=== PATIENT | female | born 2005 | race African-American/Black ===

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

== ENCOUNTER 2024-12-18 19:03 | Emergency (ER) | payer OTHER ==
[~2024-12-18] VITALS: Ht 172.7 cm; Wt 77.9 kg
[~2024-12-18 19:03] MED LIST changes: -ALIG4CAP PO; +ALIG4CAP3 PO; -NS 1,000 ML IV ONE
[2024-12-18] MEDS: IBUPROFEN 600MG TAB PO ONE (21:41)
[2024-12-18] MEDS: ONDANSETRON 4MG ORAL DISINTEGRATING TAB PO ONE (21:41)
[2024-12-18] MEDS: ACETAMINOPHEN 325 MG TAB PO ONE (21:42)
[2024-12-18] MEDS ORDERED: ONDA-282 PO (22:37)
[2024-12-18 22:50] VITALS: BP 116/55; TEMP 98.2; O2SAT 98
== END 2024-12-18 22:52 | disposition home or self-care (01) ==
LOC: M ED 19:03
DX: S09.90XA Unspecified injury of head, initial encounter (principal); M54.2 Cervicalgia; W01.198A Fall on same level from slipping, tripping and stumbling with subsequent striking against other object, initial encounter; F41.9 Anxiety disorder, unspecified; Z91.018 Allergy to other foods; Y92.9 Unspecified place or not applicable; Y93.89 Activity, other specified; Y99.1 Military activity; Z79.899 Other long term (current) drug therapy; Z79.83 Long term (current) use of bisphosphonates

== ENCOUNTER 2025-02-05 23:03 | Emergency (ER) | payer OTHER ==
[~2025-02-05] VITALS: Ht 172.7 cm; Wt 82.1 kg
[~2025-02-05 23:03] MED LIST changes: +ONDA-282 PO
[2025-02-06] MEDS: KETOROLAC 30 MG/ML 1ML VIAL IV ONE (01:17)
[2025-02-06 01:27] LABS: BASO % 0.4 % (0.0-1.0); EOS # 0.1 10^3/uL (0.0-0.5); EOS % 1.5 % (0.0-3.0); HEMOGLOBIN 11.8 g/dl (12.0-15.5); LYMPH # 2.8 10^3/uL (1.5-5.0); MEAN CORPUSCULAR HEMOGLOBIN 24.6 pg (27.0-33.0); MEAN CORPUSCULAR HGB CONC 32.8 g/dl (32.0-36.5); MEAN CORPUSCULAR VOLUME 75.2 fl (80.0-96.0); MONO # 0.6 10^3/uL (0.0-0.8); MONO % 8.3 % (2.0-8.0); NEUTROPHILS # 3.7 10^3/uL (1.5-8.5); NEUTROPHILS % 51.7 % (36.0-66.0); PLATELET COUNT, AUTOMATED 303 10^3/uL (150-450); RED BLOOD COUNT 4.79 10^6/uL (4.00-5.40); WHITE BLOOD COUNT 7.2 10^3/uL (4.0-10.0)
[2025-02-06 01:37] LABS: ERYTHROCYTE SEDIMENTATION RATE 20 mm/hr (0-20)
[2025-02-06 01:40] LABS: INR 0.94; PARTIAL THROMBOPLASTIN TIME 28.1 SECONDS (24.8-34.2); PROTHROMBIN TIME 12.8 SECONDS (12.5-14.5)
[2025-02-06 01:54] LABS: C REACTIVE PROTEIN QUANTITATIV 0.59 MG/DL (<1.0)
[2025-02-06 01:55] LABS: ALBUMIN 3.3 G/DL (3.2-5.2); ALKALINE PHOSPHATASE 43 U/L (35-104); ALT/SGPT 24 U/L (7.0-40); AST/SGOT 13 U/L (<34); BILIRUBIN,DIRECT < 0.1 MG/DL (<0.4); BILIRUBIN,TOTAL 0.2 MG/DL (0.3-1.2); BLOOD UREA NITROGEN 15 MG/DL (9-23); CALCIUM LEVEL 9.3 MG/DL (8.5-10.1); CARBON DIOXIDE LEVEL 25 MMOL/L (20-31); CHLORIDE LEVEL 108 MMOL/L (98-107); CREATININE FOR GFR 0.64 MG/DL (0.55-1.30); GLUCOSE, FASTING 84 MG/DL (60-100); POTASSIUM SERUM 4.3 MMOL/L (3.5-5.1); SODIUM LEVEL 142 MMOL/L (136-145); TOTAL PROTEIN 6.6 G/DL (5.7-8.2)
[2025-02-06] MEDS ORDERED: DULC10SU2 PR (02:00)
[2025-02-06 02:04] VITALS: BP 103/58
[2025-02-06 02:05] VITALS: TEMP 96.4; O2SAT 97
[2025-02-06] MEDS: MAGNESIUM CITRATE 300ML BTL PO ONE (02:11)
== END 2025-02-06 02:21 | disposition home or self-care (01) ==
LOC: M ED 23:03
DX: K59.00 Constipation, unspecified (principal); K62.5 Hemorrhage of anus and rectum; K64.9 Unspecified hemorrhoids; F41.9 Anxiety disorder, unspecified; K21.9 Gastro-esophageal reflux disease without esophagitis; Z91.018 Allergy to other foods
CPT/HCPCS: 74018; 80048; 80076; 85025; 85610; 85652; 85730; 86140; 96374; 99284; J1885